=== PATIENT | male | born 1955 | race Caucasian/White ===

== ENCOUNTER 2017-10-17 19:12 | Emergency (ER) | payer OTHER ==
[2017-10-17 19:53] VITALS: BP 124/66; PULSE 83; TEMP 98.3; BMI 28.0
[2017-10-17] MEDS ORDERED: SODIUM CHLORIDE 1,000 ML IV STA (19:53)
[2017-10-17] MEDS ORDERED: FAMOTIDINE 20 MG/50 ML IVPB 20 MG/50 ML MG IVPB ONE ×2 (19:53→20:13)
[2017-10-17] MEDS ORDERED: ONDANSETRON 4 MG/2 ML VIAL IVPUSH ONE (19:53)
[2017-10-17] MEDS ORDERED: MAG HYDROX/AL HYDROX/SIMETH 30 ML UNIT-DOSE CUP PO ONE (19:54)
[2017-10-17] MEDS ORDERED: ONDANSETRON 4 MG/2 ML VIAL ONE (20:13)
[2017-10-17] MEDS ORDERED: MAG HYDROX/AL HYDROX/SIMETH 30 ML UNIT-DOSE CUP ONE (20:13)
[2017-10-17 20:17] LABS: BASO % 0.5 % (0-2.0); EOS % 0.2 % (0-4.5); LYMPH # 0.7 (8-40); MCHC 34.2 g/dl (32.0-35.9); MEAN CELL VOLUME 93.4 fl (80-96); MEAN PLT VOLUME 9.1 fl (7.5-11.1); MONO # 0.6 # (3.8-10.2); NEUT # 2.3 # (42.8-82.8); NEUT % 62.4 % (42.8-82.8); PLATELET COUNT 206 K/MM3 (134-434); RDW 12.8 % (11.9-15.9); WHITE BLOOD COUNT 3.7 K/mm3 (4.0-10.0)
[2017-10-17 20:42] LABS: ALBUMIN 3.7 g/dl (3.4-5.0); ANION GAP 8 (8-16); CALCIUM 8.2 mg/dL (8.5-10.1); CO2 25 mmol/L (21-32); CREATININE 1.2 mg/dL (0.7-1.3); GLUCOSE,RANDOM 154 mg/dL (74-106); SGOT/AST 22 U/L (15-37); SGPT/ALT 33 U/L (12-78)
[2017-10-17 20:44] LABS: ALK PHOS 82 U/L (45-117); BILIRUBIN,TOTAL 0.8 mg/dL (0.2-1.0); TOT PROT 6.8 g/dl (6.4-8.2)
[2017-10-17 20:51] LABS: URINE APPEARANCE SLCLOUDY; URINE BILIRUBIN NEGATIVE (NEGATIVE); URINE BLOOD NEGATIVE (NEGATIVE); URINE COLOR AMBER; URINE GLUCOSE (UA) NEGATIVE (NEGATIVE); URINE KETONE TRACE (NEGATIVE); URINE LEUK ESTERASE NEGATIVE (NEGATIVE); URINE NITRITE NEGATIVE (NEGATIVE); URINE PROTEIN 1+ (NEGATIVE); URINE UROBILINOGEN 4.0 E.U/dl mg/dL (0.2-1.0)
--- NOTE | 2017-10-17 21:02 | PDOC ---
History of Present Illness - General Chief Complaint: Cold Symptoms Stated Complaint: FEVER Time Seen by Provider: 10/17/17 19:43 History Source: Patient Exam Limitations: No Limitations - History of Present Illness Initial Comments: 10/17/17 20:57 Patient is a 62M with history of inguinal hernia repair in 2007 here today complaining of nausea, vomiting, diarrhea, fever and epigastric burning abdominal pain radiating underneath the sternum for the past 2 days. He has a positive sick contact at his home who also has had vomiting. No blood in vomit, last time was yesterday. Patient has been tolerating PO. Last bowel movement today. Denies pain with urination. Denies shortness of breath, cough, and headache. Patient is also complaining of a chronic issue of burning chest pain, worsening at night causing cough and irritation in his throat. Past History - Past Medical History Allergies/Adverse Reactions: Allergies Allergy/AdvReac Type Severity Reaction Status Date / Time No Known Allergies Allergy Verified 10/17/17 19:53 Home Medications: Ambulatory Orders NK [No Known Home Medication] 11/30/15 - Surgical History Abdominal Surgery: Yes (hernia) - Suicide/Smoking/Psychosocial Hx Smoking History: Never smoked Have you smoked in the past 12 months: No Information on smoking cessation initiated: No Hx Alcohol Use: No Drug/Substance Use Hx: No Substance Use Type: None Review of Systems - Review of Systems Comments:: 10/17/17 21:00 GENERAL/CONSTITUTIONAL: Positive for fevers. No weakness. HEAD, EYES, EARS, NOSE AND THROAT: No change in vision. Positive for sore throat CARDIOVASCULAR: No chest pain or shortness of breath RESPIRATORY: Positive for cough. Negative for wheezing, or hemoptysis. GASTROINTESTINAL: Positive for nausea, vomiting, diarrhea. GENITOURINARY: No dysuria, frequency, or change in urination. MUSCULOSKELETAL: No joint or muscle swelling or pain. No neck or back pain. SKIN: No rash NEUROLOGIC: No headache, vertigo, loss of consciousness, or change in strength/ sensation. ENDOCRINE: No increased thirst. No abnormal weight change HEMATOLOGIC/LYMPHATIC: No anemia, easy bleeding, or history of blood clots. *Physical Exam - Vital Signs Last Vital Signs Temp Pulse Resp BP Pulse Ox 98.3 F 83 20 124/66 96 10/17/17 19:52 10/17/17 19:52 10/17/17 19:52 10/17/17 19:52 10/17/17 19:52 - Physical Exam Comments: 10/17/17 21:02 GENERAL: Awake, alert, and fully oriented, in no acute distress HEAD: No signs of trauma, normocephalic, atraumatic EYES: PERRLA, EOMI, sclera anicteric, conjunctiva clear ENT: Auricles normal inspection, hearing grossly normal, nares patent, oropharynx clear without exudates. Moist mucosa LUNGS: No distress, speaks full sentences, clear to auscultation bilaterally HEART: Regular rate and rhythm, normal S1 and S2, no murmurs, rubs or gallops, peripheral pulses normal and equal bilaterally. ABDOMEN: Minimally tender in epigastrium. Normoactive bowel sounds. No guarding , no rebound. No masses. No ward sign. EXTREMITIES: Normal inspection, Normal range of motion, no edema. No clubbing or cyanosis. NEUROLOGICAL: Cranial nerves II through XII grossly intact. Normal speech, normal gait, no focal sensorimotor deficits SKIN: Warm, Dry, normal turgor, no rashes or lesions noted. ED Treatment Course - LABORATORY CBC & Chemistry Diagram: 10/17/17 20:06 10/17/17 20:06 - ADDITIONAL ORDERS Additional order review: Laboratory Results 10/17/17 20:20 Urine Color [place] Urine Appearance Slcloudy Urine pH 5.0 Ur Specific [place] 1.033 Urine Protein 1+ H Urine Glucose (UA) Negative Urine Ketones Trace H Urine Blood Negative Urine Nitrite Negative Urine Bilirubin Negative Urine Urobilinogen 4.0 e.u/dl 10/17/17 20:06 RBC 4.72 MCV 93.4 MCHC 34.2 RDW 12.8 MPV 9.1 Neutrophils % 62.4 Lymphocytes % 20.0 Monocytes % 16.9 H Eosinophils % 0.2 Basophils % 0.5 Medical Decision Making - Medical Decision Making 10/17/17 21:03 Patient is 62M with history of inguinal hernia repair here today with vomiting, diarrhea and epigastric abdominal pain. Vital signs stable and normal. History and exam most consistent with viral illness. Will evaluate with cbc, cmp, lipase , ua. Will treat with fluids, zofran, pepcid, maalox. Barring significant lab abnormalities, will discharge patient with PCP follow up for GERD patient has been experiencing. 10/17/17 22:04 Laboratory Tests 10/17/17 10/17/17 10/17/17 20:06 20:06 20:20 WBC 3.7 L Hgb 15.1 Hct 44.1 Plt Count 206 BUN 17 Creatinine 1.2 Urine Nitrite Negative Urine WBC (Auto) <1 CBC normal, CMP shows normal kidney function, otherwise not remarkable. Lipase negative. UA negative. 10/17/17 22:09 Flu negative. Return precautions given. Will discharge with PCP follow up. *DC/Admit/Observation/Transfer Diagnosis at time of Disposition: Viral gastroenteritis - Discharge Dispostion Disposition: HOME Condition at time of disposition: Good Admit: No - Referrals Referrals: Efraín Lubin MD [Primary Care Provider] - - Patient Instructions Printed Discharge Instructions: DI for Viral Gastroenteritis -- Adult Additional Instructions: Please return if you have any new, worsening or concerning symptoms. Please follow up with your PCP regarding your chronic heartburn in the next two weeks. Print Language: CUBAN - Post Discharge Activity
[2017-10-17 21:05] LABS: URINE HYALINE CAST 2 /lpf; URINE MUCUS MANY; URINE WBC <1 /hpf (3-5)
--- NOTE | 2017-10-17 22:13 | PDOC ---
Attending Attestation - Resident Resident Name: Deny Ponce - ED Attending Attestation I have performed the following: I have examined & evaluated the patient, The case was reviewed & discussed with the resident, I agree w/resident's findings & plan - HPI HPI: 10/17/17 22:11 Pt comes with fever and vomiting and GERD - Physicial Exam PE: 10/17/17 22:11 Agree with resident exam 10/17/17 22:12 Pt feeling better; lungs clear; afebrile; abd soft. - Medical Decision Making 10/17/17 22:12 Pt hydrated; flu negative; labs normal; vitals normal
[2017-10-17 22:45] LABS: URINE LEUK ESTERASE Negative (NEGATIVE)
== END 2017-10-17 22:35 | disposition home or self-care (01) ==
LOC: JER 19:12
PROC: 3E033GC Introduction of Other Therapeutic Substance into Peripheral Vein, Percutaneous Approach (ICD-10-PCS; principal; 2017-10-17)
PROC: 3E033GC Introduction of Other Therapeutic Substance into Peripheral Vein, Percutaneous Approach (ICD-10-PCS; 2017-10-17)
DX: A08.4 Viral intestinal infection, unspecified (principal); B97.89 Other viral agents as the cause of diseases classified elsewhere
CPT/HCPCS: 36415; 80053; 81003; 81015; 83690; 85025; 87804; 99284-25